=== PATIENT | female | born 1990 ===

== ENCOUNTER 2020-12-01 21:17 | Observation (INO) | payer SELFPAY ==
[2020-12-01 22:00] VITALS: BP 126/75
[2020-12-01] MEDS ORDERED: LACTATED RINGERS 1,000 ML IV ONE (22:54)
[2020-12-01 23:21] LABS: Bilirubin,Urine NEG (Negative); Blood,Urine SM (Negative); Color,Urine Straw (Yellow); Protein,Urine <15 mg/dL mg/dL (Negative); Urobilinogen,Urine < 2.0 mg/dL (<2.0); WBC,Urine < 1.0 /HPF (0.0-6.0)
--- NOTE | 2020-12-02 00:46 | Ultrasound Report ---
Limited obstetrical ultrasound INDICATION: Term , amniotic fluid assessment COMPARISON: None FINDINGS: Term intrauterine is seen in the spinal position. Cardiac activity was documented with heart rate of 135 bpm. Placenta is free of the internal cervical os but is not well evalu ated. Amniotic fluid volume is mildly decreased with JOSH of 6.5 cm. anatomical evaluation was not per formed. BIOPHYSICAL PROFILE breathing movements: 2/2 movements: 2/2 posture and tone tone: 2/2 Qualitative amniotic fluid volume: 2/2 Total score: 8/8, within normal limits Signer Name: Sina Khan MD Signed: 12/02/2020 12:41 AM Workstation Name: [id number]
--- NOTE | 2020-12-02 04:36 | Event Note ---
Date: 12/02/20 Brief triage note: presented to triage at 37 weeks gestation to rule out labor. States she lost her mucous plug at home. Denies leaking of fluid. Irregular contractions noted. Category 1 FHR tracing. Cervix 4: unchanged after several hours. No vaginal bleeding or leaking of fluid. BPP /. JOSH 6.5. Called Dr. Coleman re: JOSH 6.5; orders to send patient home and have her return on Friday12/04/20 for another ultrasound. Discussed this plan with patient and nurse. Patient is in agreement. Discussed with patient daily movement counting, signs of labor, warning signs of late . F/U Friday in L&D triage for repeat US. F/U sooner if labor or any other problems.
== END 2020-12-02 04:15 | disposition home or self-care (01) ==
LOC: TRG 21:17 → APU 21:27 → LD 12-02 00:01 → TRG 12-02 00:01 → LD 12-02 02:28
PROVIDERS: ADMIT Obstetrics & Gynecology; ATTEND Obstetrics & Gynecology
DX: O62.9 Abnormality of forces of labor, unspecified (principal); O26.893 Other specified pregnancy related conditions, third trimester; Z3A.37 37 weeks gestation of pregnancy
CPT/HCPCS: 59025; 76815; 76819; 81001; G0378

== ENCOUNTER 2020-12-05 20:54 | Outpatient (CLI) | payer SELFPAY ==
[2020-12-05 21:21] VITALS: BP 116/78
--- NOTE | 2020-12-06 00:13 | Ultrasound Report ---
Limited obstetrical ultrasound INDICATION: Term , amniotic fluid evaluation COMPARISON: 12/01/2020 FINDINGS: Term intrauterine is again seen. Fetus is seen in a cephalic position. Placenta i s not well evaluated but is free of the internal cervical os. cardiac activity was documented a t 139 bpm. JOSH is within normal limits at 10.2 cm compared to 6.5 cm on previous study. Signer Name: Sina Khan MD Signed: 12/06/2020 12:08 AM Workstation Name: [id number]
== END 2020-12-06 00:15 | disposition home or self-care (01) ==
LOC: TRG 20:54 → APU 21:00 → TRG 12-06 00:15
PROVIDERS: ATTEND Obstetrics & Gynecology
DX: Z34.93 Encounter for supervision of normal pregnancy, unspecified, third trimester (principal); Z3A.38 38 weeks gestation of pregnancy
CPT/HCPCS: 59025; 76815

== ENCOUNTER 2020-12-21 15:08 | Inpatient (IN) | payer MEDICAID, OTHER ==
--- NOTE | 2020-12-21 18:01 | Ultrasound Report ---
US OB BPP wo non-stress, US OB limited INDICATION / CLINICAL INFORMATION: well being. COMPARISON: 12/05/2020 FINDINGS: Single, viable intrauterine in cephalic presentation. heart rate 160. Amniotic fluid volume is decreased, with a fluid index of 5.3 cm (normal value is 7 24 cm). Biophysical profile: breathing movements: 2 movements: 2 posture and tone: 2 Amniotic fluid volume: 2 Total biophysical profile score 8/8. IMPRESSION: 1. Single, viable intrauterine . 2. Biophysical profile score 8/8. 3. Amniotic fluid volume is abnormally decreased, with a fluid index of 5.3 cm. Signer Name: Juan Jose Finch MD Signed: 12/21/2020 5:57 PM Workstation Name: [id number]
[2020-12-21] MEDS ORDERED: BUTORPHANOL 2 MG/1 ML INJ IV PRN ×2 (19:23)
[2020-12-21] MEDS ORDERED: TERBUTALINE 1 MG/1 ML INJ SUB-Q PRN (19:23)
[2020-12-21] MEDS ORDERED: MINERAL OIL 30 ML ORAL LIQD PO PRN (19:23)
[2020-12-21] MEDS ORDERED: ePHEDrine SULFATE 50 MG/1 ML INJ IV PRN (19:23)
[2020-12-21] MEDS ORDERED: LIDOCAINE (2%) 20 MG/1 ML VIAL 20 ML MDV INFILTRATI ONE (19:23)
[2020-12-21] MEDS ORDERED: fentaNYL 100 MCG/2 ML INJ IV PRN (19:23)
[2020-12-21] MEDS ORDERED: LACTATED RINGERS 1,000 ML IV SCH (19:30)
[2020-12-21] MEDS ORDERED: OXYTOCIN DRIP 30 UNITS/500 ML BAG IV SCH ×2 (20:00)
--- NOTE | 2020-12-21 20:04 | History and Physical Report ---
History of Present Illness Date of examination: 12/21/20 Date of admission: 12/21/20 18:54 Chief complaint: Pt reports she was sent to [facility] by her doctor "to be examined". History of present illness: 30 y/o presents to [facility] @ 40.3 wks with c/o mild uc. Pt had a NR NST and decel at the office, and was sent by [facility] for a evaul. Pt initiated her pnc at same place @ 14.3 wks. She has a hx of chronic hematuria and uti with a neg urine EMETERIO. Pt had a failed 1 hr gtt, but her 3 hr gtt was wnl. Neg surgical or social hx. Family hx of DM. Pt has a son with congenital hip dysplasia. Pt had a bpp of 8/8 with a reactive NST. JOSH was 5.3. Pt was admitted to L&D for an IOL r/t [place]. Past History Past Medical History: other (oligo, postdates, ) Past Surgical History: no surgical history Family/Genetic History: diabetes, other (pt has a son with congenital hip dysplasia) Social history: no significant social history - Obstetrical History Expected Date of Delivery: 12/18/20 Actual Gestation: 40 Week(s) 3 Day(s) : 2 Para: 1 Hx # Term Pregnancies: 1 Number of Living Children: 1 Medications and Allergies Allergies Allergy/AdvReac Type Severity Reaction Status Date / Time No Known Allergies Allergy Verified 12/01/20 23:03 Review of Systems All systems: negative Eyes: deferred Ears, nose, mouth and throat: deferred Breasts: normal Genitourinary: normal appearance Rectal Exam: deferred - Vital Signs Vital signs: Vital Signs Pulse BP 64 129/88 12/21/20 15:41 12/21/20 15:41 Temp Pulse Resp BP Pulse Ox 98.6 F 93 H 20 128/87 98 12/21/20 15:45 12/21/20 19:29 12/21/20 15:45 12/21/20 18:20 12/21/20 19:29 - Physical Exam Breasts: Positive: normal Abdomen: Positive: normal appearance, soft, normal bowel sounds Genitourinary (Female): Positive: normal external genitalia, normal perenium Vulva: both: normal Vagina: Positive: normal moisture Uterus: Positive: enlarged, normal contour, other (gravid) Adnexa: both: normal Anus/Rectum: Positive: normal perianal skin Extremities: Positive: normal - Obstetrical FHR: auscultation normal, category 1 Uterine Contraction Monitor Mode: External Cervical Dilatation: 4 Cervical Effacement Percentage: 80 station: -3 Uterine Contraction Pattern: Regular Uterine Tone Measurement Phase: Resting Uterine Contraction Intensity: Mild Results Result Diagrams: 12/21/20 19:00 All other labs normal. Assessment and Plan A: IUP@ 40.3 wks postdates [place] JOSH 5.3 Chronic hematuria with hx of uti EMETERIO wnl P: Admit to L&D Continuous monitoring Pain med/Epidural prn Start Pitocin per protocal Anticipate MD is aware of plan of care - Patient Problems (1) Supervision of normal IUP (intrauterine ) in multigravida Current Visit: Yes Status: Acute (2) Oligohydramnios Current Visit: Yes Status: Acute (3) Hx: UTI (urinary tract infection) Current Visit: Yes Status: Acute
[2020-12-21 20:23] LABS: Hematocrit 40.8 % (30.3-42.9); Mean Corpuscular HGB Conc 34 % (30-34); Mean Corpuscular Volume 91 fl (79-97); Platelet Count 183 K/mm3 (140-440); Red Blood Count 4.49 M/mm3 (3.65-5.03); Red Cell Distribution Width 14.6 % (13.2-15.2)
[2020-12-22] MEDS ORDERED: LIDOCAINE (2%) 20 MG/1 ML VIAL 20 ML MDV INFILTRATI ONE (00:32)
[2020-12-22] MEDS ORDERED: LANOLIN/ZINC/DIMETHICONE (LANSINOH) 7 GM TP PRN (00:48)
[2020-12-22] MEDS ORDERED: MAGNESIUM HYDROXIDE (MOM) ORAL LIQD UDC PO PRN (00:48)
[2020-12-22] MEDS ORDERED: PROMETHAZINE 25 MG RECT SUPP PR PRN (00:48)
[2020-12-22] MEDS ORDERED: ONDANSETRON 4 MG/2 ML INJ IV PRN (00:48)
[2020-12-22] MEDS ORDERED: diphenhydrAMINE 25 MG CAP PO PRN (00:48)
[2020-12-22] MEDS ORDERED: WITCH HAZEL/ GLYCERIN PAD TP PRN (00:48)
[2020-12-22] MEDS ORDERED: PROMETHAZINE 25 MG TAB PO PRN (00:48)
--- NOTE | 2020-12-22 01:28 | Procedure Note ---
OB Delivery Note - Delivery Date of Delivery: 12/22/20 Surgeon: CRUZ HASSAN - Vaginal Delivery presentation: vertex Delivery position: OA Intrapartum events: meconium Delivery induction: none Delivery augmentation: rupture of membranes, pitocin Delivery monitor: external FHT, external uterine Route of delivery: Delivery placenta: spontaneous Delivery cord: 3 umbilical vessels Episiotomy: none Delivery laceration: 1st degree, other (perineal) Delivery repair: vicryl Anesthesia: intravenous Delivery comments: Called to for delivery. SVE 10/100/+2 and pt was pushing. of a viable live female in OA position over terminal mec. Spontaneous del of head and shoulders. Infant was placed on mom's chest/abd for skin to skin bonding while NICU nurse dried and stimulated baby. Delayed cord clamping x approx 90 sec then cord was clamped x 2 and FOB was allowed to cut the cord. Infant was taken to the infant warmer for an initial asses by the NICU nurse. 8/9. Spontaneous del of a intact placenta with CVX3. FF@U2 with fundal massage and IV Pitocin. An exploration of tears revealed a small bleeding 1st degree perineal lac which was repaired with a 3-[address]-1. Pt tolerated repair well. Mom and baby were left in stable condition with nurses. FW 3020 Gms. QBL to be calculated by nurse. - A at 1 minute: 8 at 5 minutes: 9 Gender: Female (FW 3020)
[2020-12-22] MEDS: IBUPROFEN 600 MG TAB PO SCH ×2 (04:47→23:01)
[2020-12-22 13:57] LABS: Hematocrit 37.5 % (30.3-42.9); Hemoglobin 12.8 gm/dl (10.1-14.3)
[2020-12-23] MEDS: IBUPROFEN 600 MG TAB PO SCH (05:42)
--- NOTE | 2020-12-23 11:50 | Progress Note ---
Assessment and Plan - Patient Problems (1) Vaginal delivery Current Visit: Yes Status: Acute Plan to address problem: Patient doing well in the period. Meeting goals. --Dispo pending disposition. Wants to consider going home if baby able to go home pending bilirubin assessment. Subjective - Subjective Date of service: 12/23/20 Principal diagnosis: PPD1 Interval history: Patinet doing well. Meeting goals. Baby doing well. Breast/bottle feeding. Baby still needs bilirubin f/u assessment. Patient reports: appetite normal, voiding normally, pain well controlled, flatus Odonnell: doing well Objective - Vital Signs Latest vital signs: Vital Signs Temp Pulse Resp BP Pulse Ox 12/23/20 07:24 98.3 F 65 16 132/79 95 12/22/20 20:38 98.4 F 83 20 117/80 97 12/22/20 16:03 98.3 F 75 20 123/76 98 12/22/20 11:58 98.5 F 67 20 118/71 97 Intake and Output 12/22/20 12/23/20 12/23/20 23:59 07:59 15:59 Intake Total 120 240 Balance 120 240 Intake: Oral 120 240 Other: Total, Intake Amount 120 240 # Voids Void 1 1 - Exam Abdomen: Present: normal appearance, normal bowel sounds Uterus: Present: fundal height below umbilicus
[2020-12-24 09:39] VITALS: BP 117/79
--- NOTE | 2020-12-24 14:32 | Progress Note ---
Assessment and Plan A: day 2 S/P . P: Discharge patient home today. Discussed with patient discharge instructions and warning signs. Advised patient to continue taking vitamin at home. Advised patient to avoid intercourse/sexual activity, lifting, and housework. Advised patient to follow up at [facility] in 6 weeks, sooner if needed. Patient voiced understanding of all instructions. Subjective - Subjective Date of service: 12/24/20 Principal diagnosis: PPD2 Interval history: Doing well. Patient desires discharge home today. Patient reports: appetite normal, voiding normally, pain well controlled, flatus, ambulating normally, no dizzy ambulation, no nauseated : doing well Objective - Vital Signs Latest vital signs: Vital Signs Temp Pulse Resp BP Pulse Ox 12/24/20 08:33 98.3 F 74 18 117/79 97 12/24/20 00:21 98.4 F 74 20 120/81 94 12/23/20 16:01 98.5 F 83 20 117/77 97 Intake and Output 12/23/20 12/24/20 12/24/20 23:59 07:59 15:59 Intake Total 120 240 240 Balance 120 240 240 Intake: Oral 120 240 240 Other: Total, Intake Amount 120 240 240 # Voids Void 1 1 1 - Exam Cardiovascular: Present: Regular rate Lungs: Present: Clear to auscultation Abdomen: Present: normal appearance, soft, normal bowel sounds. Absent: distention, tenderness, guarding, rigidity Uterus: Present: normal, firm, fundal height below umbilicus. Absent: bogginess, tenderness Extremities: Present: normal. Absent: tenderness, edema
--- NOTE | 2020-12-24 14:40 | Discharge Summary ---
Providers - Providers Date of Admission: 12/21/20 18:54 Date of discharge: 12/24/20 Attending physician: ZEINA YANEZ MD Primary care physician: JUDY MOSES JR, MD Hospitalization Reason for admission: induction of labor Delivery: Episiotomy: none Laceration: 1st degree Other procedures: none complications: none Discharge diagnosis: IUP at term delivered baby: female Pertinent studies: Labs Hospital course: Stable hospital course. Condition at discharge: Good Disposition: DC-01 TO HOME OR SELFCARE - Discharge Diagnoses (1) Term delivered Status: Acute Plan - Provider Discharge Summary Activity: routine, no sex for 6 weeks, no heavy lifting 4 weeks, no strenuous exercise Diet: routine Instructions: routine Additional instructions: Continue taking your vitamin every day at home. Call your doctor immediately for: * Fever > 100.5 * Heavy vaginal bleeding ( >1 pad per hour) * Severe persistent headache * Shortness of breath * Reddened, hot, painful area to leg or breast - Follow up plan Follow up: JUDY MOSES JR, MD [Primary Care Provider] - 6 Weeks
== END 2020-12-24 16:54 | disposition home or self-care (01) | DRG 806 ==
LOC: TRG 15:08 → APU 15:11 → TRG 18:51 → LD 18:54 → OB 12-22 02:51
PROC: 10E0XZZ Delivery of Products of Conception, External Approach (ICD-10-PCS; principal; 2020-12-22)
PROC: 0HQ9XZZ Repair Perineum Skin, External Approach (ICD-10-PCS; 2020-12-22)
DX: O77.0 Labor and delivery complicated by meconium in amniotic fluid (principal); O41.03X0 Oligohydramnios, third trimester, not applicable or unspecified; Z37.0 Single live birth; Z3A.40 40 weeks gestation of pregnancy; Z83.3 Family history of diabetes mellitus; O48.0 Post-term pregnancy; O70.0 First degree perineal laceration during delivery; Z87.440 Personal history of urinary (tract) infections; Z20.822 Contact with and (suspected) exposure to COVID-19
CPT/HCPCS: 36415; 76815; 76819; 85014; 85018; 85027; 86850; 86900; 86901; 99211; G0378; A6250; G0463; J0595; J2590; J7120; U0003